=== PATIENT | male | born 1945 | race African-American/Black ===

== ENCOUNTER 2016-04-11 13:24 | Inpatient (IN) | payer MEDICARE, MEDICAID ==
[~2016-04-11] VITALS: Ht 188 cm; Wt 90.2 kg
[~2016-04-11 13:24] MED LIST: AML5T PO; ASPI81CH43 PO; HYDR12.56 PO; LOVA10TA54 PO; TERA2CAP45 PO
[2016-04-11] MEDS ORDERED: SODIUM CHLORIDE 0.9% 250 ML IV ONE (15:09)
[2016-04-11] MEDS ORDERED: CLINDAMYCIN 600MG IV 50 ML IV ONE (15:15)
[2016-04-11] MEDS ORDERED: PROMETHAZINE HCL 25 MG/ML 1ML IV PRN (15:30)
[2016-04-11] MEDS ORDERED: MORPHINE SULF INJ 2 MG/ML SYRINGE 1ML IV PRN ×2 (15:30)
[2016-04-11] MEDS ORDERED: NITROGLYCERIN 0.4 MG SL TAB SL PRN (15:30)
[2016-04-11] MEDS ORDERED: LORazepam 0.5 MG TAB PO PRN (15:30)
[2016-04-11] MEDS ORDERED: LACTULOSE 20Gm/30ML SOLN PO PRN (15:30)
[2016-04-11] MEDS ORDERED: HYDROcodone-ACET 5/325MG TAB PO PRN (15:30)
[2016-04-11] MEDS ORDERED: TEMAZEPAM 15 MG CAP PO PRN (15:30)
[2016-04-11] MEDS ORDERED: DEXTROSE (50%) 50ML SYRG IV PRN (15:30)
[2016-04-11] MEDS ORDERED: ACETAMINOPHEN 500 MG TAB PO PRN (15:30)
[2016-04-11 16:41] LABS: Basophils # (auto) 0.1 uL; Basophils % (auto) 0.6 % (0.0-2.0); Eosinophils # (auto) 0.1 uL; Eosinophils % (auto) 0.9 % (0.0-7.0); Hematocrit 32.7 % (41.0-53.0); Hemoglobin 10.3 g/dL (13.5-17.5); Lymphocytes # (auto) 2.1 uL; Lymphocytes % (auto) 22.3 % (10.0-50.0); Mean Corpuscular Hemoglobin 28.6 pg (28.0-32.0); Mean Corpuscular Hgb Conc. 31.7 g/dL (32.0-36.0); Mean Corpuscular Volume 90.3 fL (80.0-100.0); Mean Platelet Volume 7.5 fL (7.4-10.4); Monocytes # (auto) 0.6 uL; Monocytes % (auto) 6.4 % (0.0-12.0); Neutrophils # (auto) 6.7 uL; Neutrophils % (auto) 69.8 % (37.0-80.0); Platelet Count (auto) 281 10^3/uL (140-450); White Blood Cell 9.6 10^3/uL (4.4-10.8)
[2016-04-11 17:00] LABS: BUN/Creatinine Ratio 23.2; Calcium 7.8 mg/dL (8.5-10.1); Potassium 4.6 mmol/L (3.5-5.1)
[2016-04-11] MEDS: InsuLIN REG 1unit/0.01ml Soln (100units/ml) SC SCH ×2 (17:00→22:00)
[2016-04-11 17:02] LABS: Bilirubin, Total 0.2 mg/dL (0.2-1.0)
[2016-04-11] MEDS: ENOXAPARIN SOD 40 MG/0.4 ML SYRINGE SC SCH (17:14)
[2016-04-11] MEDS: ACCU-CHEK COMFORT CURVE STRIP VI SCH ×2 (17:14→23:14)
[2016-04-11] MEDS: SODIUM CHLORIDE 0.9% 1,000 ML IV SCH (17:23)
[2016-04-11 22:00] VITALS: BP 174/73
[2016-04-11] MEDS: CLINDAMYCIN 600MG IV 50 ML IV SCH (22:55)
[2016-04-12] MEDS: SODIUM CHLORIDE 0.9% 1,000 ML IV SCH ×2 (01:25→11:05)
[2016-04-12 02:33] VITALS: BP 174/73
[2016-04-12] MEDS ORDERED: INFLUENZA QUAD 2016-2017 0.5 ML SYRG IM ONE (03:45)
[2016-04-12] MEDS ORDERED: PNEUMOCOCCAL VACC POLYS 25 MCG/0.5 ML VIAL IM ONE (03:45)
[2016-04-12 05:32] VITALS: BP 109/63
[2016-04-12] MEDS: CLINDAMYCIN 600MG IV 50 ML IV SCH ×3 (06:17→21:33)
[2016-04-12] MEDS: InsuLIN REG 1unit/0.01ml Soln (100units/ml) SC SCH ×4 (07:00→21:51)
[2016-04-12] MEDS: ACCU-CHEK COMFORT CURVE STRIP VI SCH ×4 (07:12→21:51)
[2016-04-12 09:11] VITALS: BP 157/83
[2016-04-12] MEDS: ENOXAPARIN SOD 40 MG/0.4 ML SYRINGE SC SCH (10:47)
[2016-04-12] MEDS: cefTRIAXone 1GM/50ML D5W 50 ML IV SCH (10:47)
[2016-04-12 13:11] VITALS: BP 162/95
[2016-04-12 16:51] VITALS: BP 148/82
[2016-04-12] MEDS ORDERED: SODIUM CHLORIDE 0.9% 1,000 ML IV SCH (19:15)
[2016-04-12] MEDS ORDERED: SODIUM BICARBONATE 8.4 % INJ 50ML VIAL IV ONE ×2 (20:00→21:40)
[2016-04-12] MEDS ORDERED: SODIUM BICARBONATE 50ML VIAL 50 ML in SODIUM CHLORIDE 0.9% 1,000 ML IV SCH (20:15)
[2016-04-12 20:52] LABS: INR 1.14 (0.9-1.15); Prothrombin Time 11.7 sec (9.37-12.3)
[2016-04-12 21:28] VITALS: BP 165/84
[2016-04-12] MEDS: ACETYLCYSTEINE ORAL for CIN 20%(200MG/ML) 4ML PO SCH (21:49)
[2016-04-13] MEDS ORDERED: cloNIDine HCL 0.1 MG TAB ONE (00:31)
[2016-04-13] MEDS: cloNIDine HCL 0.1 MG TAB PO PRN (00:42)
[2016-04-13 05:30] VITALS: BP 150/86
[2016-04-13] MEDS: CLINDAMYCIN 600MG IV 50 ML IV SCH ×3 (05:40→21:43)
[2016-04-13 05:55] LABS: Basophils # (auto) 0 uL; Basophils % (auto) 0.4 % (0.0-2.0); Eosinophils # (auto) 0.1 uL; Eosinophils % (auto) 1.1 % (0.0-7.0); Hematocrit 29.7 % (41.0-53.0); Hemoglobin 9.7 g/dL (13.5-17.5); Mean Corpuscular Hemoglobin 29.3 pg (28.0-32.0); Mean Corpuscular Hgb Conc. 32.7 g/dL (32.0-36.0); Mean Corpuscular Volume 89.4 fL (80.0-100.0); Mean Platelet Volume 7.4 fL (7.4-10.4); Monocytes # (auto) 0.7 uL; Monocytes % (auto) 6.4 % (0.0-12.0); Neutrophils # (auto) 8.1 uL; Neutrophils % (auto) 74.1 % (37.0-80.0); Platelet Count (auto) 257 10^3/uL (140-450); Red Cell Distribution Width 15.7 % (11.6-16.0); White Blood Cell 10.9 10^3/uL (4.4-10.8)
[2016-04-13] MEDS ORDERED: ASPirin 325 MG TAB PO ONE (06:00)
[2016-04-13] MEDS: InsuLIN REG 1unit/0.01ml Soln (100units/ml) SC SCH ×4 (06:27→21:42)
[2016-04-13] MEDS: ACCU-CHEK COMFORT CURVE STRIP VI SCH ×4 (06:27→21:42)
[2016-04-13 06:52] LABS: BUN/Creatinine Ratio 20.4; Calcium 7.8 mg/dL (8.5-10.1)
[2016-04-13 08:22] VITALS: BP 152/82
[2016-04-13] MEDS: ACETYLCYSTEINE ORAL for CIN 20%(200MG/ML) 4ML PO SCH ×2 (09:37→21:41)
[2016-04-13] MEDS: SODIUM CHLORIDE 0.9% 1,000 ML IV SCH (09:38)
[2016-04-13] MEDS: ENOXAPARIN SOD 40 MG/0.4 ML SYRINGE SC SCH (09:38)
[2016-04-13] MEDS: cefTRIAXone 1GM/50ML D5W 50 ML IV SCH (09:38)
[2016-04-13] MEDS ORDERED: IODIXANOL 320MG/ML 100ML BTL IV ONE (12:50)
[2016-04-13] MEDS ORDERED: LIDOCAINE 2%HCL (LOCAL ANESTH.) INJ 20ML MDV ONE (12:50)
[2016-04-13 13:00] VITALS: BP 153/91
[2016-04-13] MEDS ORDERED: fentaNYL CITRATE 100 MCG/2 ML VL ONE (13:43)
[2016-04-13] MEDS ORDERED: EPTIFIBATIDE INJ (2MG/ML) 10ML VIAL IV ONE (13:43)
[2016-04-13] MEDS ORDERED: MIDAZOLAM HCL 1MG/1ML-2 ML VIAL ONE (13:43)
[2016-04-13] MEDS ORDERED: SODIUM CHL 0.9% 50 ML ONE (13:43)
[2016-04-13] MEDS ORDERED: ANGIOMAX 250 MG VIAL IV ONE (13:43)
[2016-04-13] MEDS ORDERED: VERAPAMIL 2.5MG/ML INJ 2ML VIAL IV ONE (14:38)
[2016-04-13] MEDS ORDERED: NITROGLYCERIN 5MG/ML 10ML VIAL IV ONE (14:38)
[2016-04-13] MEDS ORDERED: CLOPIDOGREL 300 MG TAB ONE (15:03)
[2016-04-13] MEDS ORDERED: hydrALAZINE HCL 20 MG/ML VL ONE (15:37)
[2016-04-13] MEDS ORDERED: hydrALAZINE HCL 20 MG/ML VL IV ONE (16:30)
[2016-04-13 16:49] VITALS: BP 158/80
[2016-04-13 22:00] VITALS: BP 177/91
[2016-04-14] MEDS: SODIUM CHLORIDE 0.9% 1,000 ML IV SCH ×2 (04:29→14:11)
[2016-04-14 05:00] VITALS: BP 148/92
[2016-04-14] MEDS: CLINDAMYCIN 600MG IV 50 ML IV SCH ×3 (05:51→21:52)
[2016-04-14 06:23] LABS: Basophils # (auto) 0 uL; Basophils % (auto) 0.2 % (0.0-2.0); Eosinophils # (auto) 0.1 uL; Eosinophils % (auto) 0.7 % (0.0-7.0); Hematocrit 29.4 % (41.0-53.0); Hemoglobin 9.6 g/dL (13.5-17.5); Lymphocytes # (auto) 1.5 uL; Lymphocytes % (auto) 13.6 % (10.0-50.0); Mean Corpuscular Hgb Conc. 32.6 g/dL (32.0-36.0); Mean Corpuscular Volume 88.9 fL (80.0-100.0); Mean Platelet Volume 7.7 fL (7.4-10.4); Monocytes # (auto) 0.7 uL; Monocytes % (auto) 6.3 % (0.0-12.0); Neutrophils # (auto) 8.8 uL; Neutrophils % (auto) 79.2 % (37.0-80.0); Platelet Count (auto) 254 10^3/uL (140-450); Red Cell Distribution Width 15.9 % (11.6-16.0); White Blood Cell 11.1 10^3/uL (4.4-10.8)
[2016-04-14] MEDS: InsuLIN REG 1unit/0.01ml Soln (100units/ml) SC SCH ×4 (06:23→21:53)
[2016-04-14] MEDS: ACCU-CHEK COMFORT CURVE STRIP VI SCH ×4 (06:23→21:52)
[2016-04-14 06:43] LABS: BUN/Creatinine Ratio 18.5; Calcium 7.7 mg/dL (8.5-10.1); Potassium 4.5 mmol/L (3.5-5.1)
[2016-04-14 09:06] VITALS: BP 155/88
[2016-04-14] MEDS: BUPIVACAINE 0.75% INJ 10ML MPV SDV IJ ONE ×2 (09:56→10:30)
[2016-04-14] MEDS ORDERED: LABETALOL HCL 5 MG/ML 4ML SYRINGE IV ONE (09:56)
[2016-04-14] MEDS ORDERED: NEOMYCIN-BACITRACIN-POLYM 15GM TOP OINT TOP ONE (09:56)
[2016-04-14] MEDS: ceFAZolin 1GM VL ONE ×2 (09:56→10:30)
[2016-04-14] MEDS ORDERED: MIDAZOLAM HCL 1MG/1ML-2 ML VIAL IV ONE (09:56)
[2016-04-14] MEDS ORDERED: ONDANSETRON HCL 4 MG/2 ML VIAL ONE (10:07)
[2016-04-14] MEDS ORDERED: fentaNYL CITRATE 100 MCG/2 ML VL ONE (10:07)
[2016-04-14] MEDS ORDERED: KETOROLAC TROMETH 60MG/2ML VIAL IM ONE (10:07)
[2016-04-14] MEDS ORDERED: DEXAMETHASONE SOD PHOS 10MG/1ML VIAL INJ ONE (10:07)
[2016-04-14] MEDS ORDERED: KETAMINE HCL 50 MG/ML 10ML VIAL ONE (10:08)
[2016-04-14] MEDS ORDERED: HYDROmorphone HCL 2 MG/ML VL IV PRN (11:15)
[2016-04-14] MEDS ORDERED: ONDANSETRON HCL 4 MG/2 ML VIAL IV ONE (11:15)
[2016-04-14] MEDS: cefTRIAXone 1GM/50ML D5W 50 ML IV SCH (14:07)
[2016-04-14] MEDS: CLOPIDOGREL BISULFATE 75 MG TAB PO SCH (14:09)
[2016-04-14] MEDS: ENOXAPARIN SOD 40 MG/0.4 ML SYRINGE SC SCH (14:09)
[2016-04-14] MEDS: ACETYLCYSTEINE ORAL for CIN 20%(200MG/ML) 4ML PO SCH (15:19)
[2016-04-14 17:34] VITALS: BP 180/88
[2016-04-14] MEDS ORDERED: amLODIPine BESYLATE 5 MG TAB PO ONE (17:45)
[2016-04-14] MEDS: cloNIDine HCL 0.1 MG TAB PO PRN (18:26)
[2016-04-14 21:16] VITALS: BP 154/87
[2016-04-14 22:00] VITALS: BP 154/87
[2016-04-15 05:00] VITALS: BP 139/77
[2016-04-15] MEDS: SODIUM CHLORIDE 0.9% 1,000 ML IV SCH ×2 (05:46→09:00)
[2016-04-15] MEDS: CLINDAMYCIN 600MG IV 50 ML IV SCH (06:46)
[2016-04-15] MEDS: ACCU-CHEK COMFORT CURVE STRIP VI SCH ×2 (06:46→11:30)
[2016-04-15] MEDS: InsuLIN REG 1unit/0.01ml Soln (100units/ml) SC SCH ×2 (06:47→11:30)
[2016-04-15 09:00] VITALS: BP 131/71
[2016-04-15] MEDS: cefTRIAXone 1GM/50ML D5W 50 ML IV SCH (09:00)
[2016-04-15] MEDS: CLOPIDOGREL BISULFATE 75 MG TAB PO SCH (10:00)
[2016-04-15] MEDS: ENOXAPARIN SOD 40 MG/0.4 ML SYRINGE SC SCH (10:00)
[2016-04-15] MEDS ORDERED: amLODIPine BESYLATE 5 MG TAB PO SCH (10:00)
[2016-04-15 11:07] VITALS: BP 131/71
[2016-04-15 13:00] VITALS: BP 132/84
== END 2016-04-15 14:30 | disposition home or self-care (01) | DRG 617 ==
LOC: ER 13:28 → TELE 13:29 → TELE-EAST 20:16
PROVIDERS: ADMIT Internal Medicine; ATTEND Family Medicine
PROC: 04CL3ZZ Extirpation of Matter from Left Femoral Artery, Percutaneous Approach (ICD-10-PCS; 2016-04-13)
PROC: 04CN3ZZ Extirpation of Matter from Left Popliteal Artery, Percutaneous Approach (ICD-10-PCS; 2016-04-13)
PROC: 047L3Z1 Dilation of Left Femoral Artery using Drug-Coated Balloon, Percutaneous Approach (ICD-10-PCS; 2016-04-13)
PROC: 0Y6Q0Z0 Detachment at Left 1st Toe, Complete, Open Approach (ICD-10-PCS; principal; 2016-04-14 10:11)
DX: E11.69 Type 2 diabetes mellitus with other specified complication (principal); M86.8X7 Other osteomyelitis, ankle and foot; L03.032 Cellulitis of left toe; N18.3 Chronic kidney disease, stage 3 (moderate); I12.9 Hypertensive chronic kidney disease with stage 1 through stage 4 chronic kidney disease, or unspecified chronic kidney disease; E11.22 Type 2 diabetes mellitus with diabetic chronic kidney disease; E78.5 Hyperlipidemia, unspecified; I73.9 Peripheral vascular disease, unspecified; I48.2 Chronic atrial fibrillation; M19.90 Unspecified osteoarthritis, unspecified site; F17.210 Nicotine dependence, cigarettes, uncomplicated; D64.9 Anemia, unspecified; I67.9 Cerebrovascular disease, unspecified; L97.529 Non-pressure chronic ulcer of other part of left foot with unspecified severity; S90.413A Abrasion, unspecified great toe, initial encounter; E11.42 Type 2 diabetes mellitus with diabetic polyneuropathy; R63.4 Abnormal weight loss; I49.9 Cardiac arrhythmia, unspecified; Z83.3 Family history of diabetes mellitus; Z82.49 Family history of ischemic heart disease and other diseases of the circulatory system; Z82.3 Family history of stroke; I25.2 Old myocardial infarction; Z95.0 Presence of cardiac pacemaker; Z79.899 Other long term (current) drug therapy; Z80.9 Family history of malignant neoplasm, unspecified; Z79.82 Long term (current) use of aspirin; Z68.25 Body mass index [BMI] 25.0-25.9, adult
CPT/HCPCS: 36415; 37225; 71010; 73660; 78315; 80048; 80053; 82962; 83036; 85025; 85049; 85610; 85652; 87040; 87205; 93005; 93926; 94761; 96365; 97001; 99152; J0690; J0696; J1100; J1815; J1885; J2250; J2405; J3490; Q9967

== ENCOUNTER 2016-05-02 11:57 | Emergency (ER) | payer MEDICARE, MEDICAID ==
[~2016-05-02] VITALS: Ht 188 cm; Wt 88.0 kg
[2016-05-02 12:26] VITALS: BP 148/82
[2016-05-02] MEDS ORDERED: HYDROmorphone HCL 2 MG/ML VL IM ONE (13:15)
[2016-05-02] MEDS ORDERED: ONDANSETRON HCL 4 MG/2 ML VIAL IM ONE (13:15)
== END 2016-05-02 14:33 | disposition home or self-care (01) ==
LOC: ER 12:10
DX: G89.18 Other acute postprocedural pain (principal); Z89.412 Acquired absence of left great toe; I48.91 Unspecified atrial fibrillation; M19.90 Unspecified osteoarthritis, unspecified site; E11.9 Type 2 diabetes mellitus without complications; E78.5 Hyperlipidemia, unspecified; I10 Essential (primary) hypertension; I25.2 Old myocardial infarction; F17.210 Nicotine dependence, cigarettes, uncomplicated; Z79.899 Other long term (current) drug therapy; Z79.82 Long term (current) use of aspirin
CPT/HCPCS: 96372; 99284; J1170; J2405

== ENCOUNTER 2016-08-09 12:17 | Inpatient (IN) | payer MEDICARE, MEDICAID ==
[~2016-08-09] VITALS: Ht 188 cm; Wt 84.6 kg
[~2016-08-09 12:17] MED LIST changes: +ACE325T PO; +ASCO500C49 PO; +FAM20T PO; -HYDR12.56 PO; +INSREGI SC; +MULTTAB99 PO; +PIP3PBAE IV; +SACC250C PO; +TEMA15CA91 PO; +VAN1PBAE IV; +ZIN220C PO; +[UNRECOGNIZED DRUG - OTHER] VI
[2016-08-09 13:18] LABS: Basophils # (auto) 0.1 uL; Basophils % (auto) 0.9 % (0.0-2.0); Eosinophils # (auto) 0 uL; Eosinophils % (auto) 0.4 % (0.0-7.0); Hematocrit 34.3 % (41.0-53.0); Hemoglobin 11.4 g/dL (13.5-17.5); Lymphocytes # (auto) 1.3 uL; Lymphocytes % (auto) 12.9 % (10.0-50.0); Mean Corpuscular Hemoglobin 29.3 pg (28.0-32.0); Mean Corpuscular Hgb Conc. 33.2 g/dL (32.0-36.0); Mean Corpuscular Volume 88.3 fL (80.0-100.0); Mean Platelet Volume 7.5 fL (7.4-10.4); Monocytes # (auto) 0.5 uL; Monocytes % (auto) 5.3 % (0.0-12.0); Neutrophils # (auto) 8.1 uL; Neutrophils % (auto) 80.5 % (37.0-80.0); Platelet Count (auto) 457 10^3/uL (140-450); White Blood Cell 10.1 10^3/uL (4.4-10.8)
[2016-08-09 13:31] LABS: INR 1.06 (0.9-1.15); Partial Thromboplastin Time 24.3 sec (22.64-33.71); Prothrombin Time 11.4 sec (9.37-12.3)
[2016-08-09 13:37] LABS: Albumin 2.6 g/dL (3.4-5.0); BUN/Creatinine Ratio 18.2; Calcium 8.6 mg/dL (8.5-10.1); Potassium 3.9 mmol/L (3.5-5.1)
[2016-08-09 13:39] LABS: Bilirubin, Total 0.3 mg/dL (0.2-1.0); Total Protein 7.5 g/dL (6.4-8.2)
[2016-08-09] MEDS ORDERED: VANCOMYCIN PER PHARMACY 0 MG IV SCH (15:15)
[2016-08-09] MEDS ORDERED: DEXTROSE (50%) 50ML SYRG IV PRN (15:15)
[2016-08-09] MEDS ORDERED: MULTIPLE VITAMINS W/ MINERALS TAB PO ONE (15:15)
[2016-08-09] MEDS ORDERED: CLINDAMYCIN 600MG IV 50 ML IV ONE (15:15)
[2016-08-09] MEDS ORDERED: ZINC SULFATE 220 MG CAP PO ONE (15:15)
[2016-08-09] MEDS ORDERED: PIPERACILLIN-TAZOB 3.375GM 100 ML IV ONE (15:15)
[2016-08-09] MEDS ORDERED: ONDANSETRON HCL 4 MG/2 ML VIAL IV PRN (15:15)
[2016-08-09] MEDS ORDERED: VANCOMYCIN 1,250 MG in D5W 5% 250 ML IV ONE (17:00)
[2016-08-09] MEDS: ACCU-CHEK COMFORT CURVE STRIP VI SCH ×2 (17:20→22:26)
[2016-08-09] MEDS: InsuLIN REG 1unit/0.01ml Soln (100units/ml) SC SCH ×2 (17:23→22:00)
[2016-08-09] MEDS: SODIUM CHLORIDE 0.9% 1,000 ML IV SCH (17:27)
[2016-08-09] MEDS: PIPERACILLIN-TAZOB 2.25GM 50 ML IV SCH ×2 (18:00→23:33)
[2016-08-09 22:00] VITALS: BP 129/73
[2016-08-09] MEDS: ATORVASTATIN 20 MG TAB PO SCH (22:25)
[2016-08-09] MEDS: TERAZOSIN HCL 1 MG CAP PO SCH (22:26)
[2016-08-09 22:44] LABS: Urine Bilirubin Negative (Negative); Urine Blood Negative /uL (Negative); Urine Color Yellow (Yellow); Urine Ketone Negative (Negative); Urine Nitrite Negative (Negative); Urine RBC 2 /hpf (0 - 3); Urine Squamous Epithelial Cell FEW /hpf (<5); Urine Urobilinogen Normal (Negative)
[2016-08-09 22:45] LABS: Urine Glucose 1+ mg/dL (Normal)
[2016-08-10] MEDS: PIPERACILLIN-TAZOB 2.25GM 50 ML IV SCH ×4 (05:02→23:31)
[2016-08-10 06:00] VITALS: BP 145/76
[2016-08-10] MEDS: InsuLIN REG 1unit/0.01ml Soln (100units/ml) SC SCH ×4 (06:40→22:15)
[2016-08-10] MEDS: ACCU-CHEK COMFORT CURVE STRIP VI SCH ×4 (06:41→22:09)
[2016-08-10 06:51] LABS: Albumin 2.3 g/dL (3.4-5.0); Bilirubin, Total 0.5 mg/dL (0.2-1.0); Calcium 8.2 mg/dL (8.5-10.1); Potassium 3.6 mmol/L (3.5-5.1); Total Protein 6.9 g/dL (6.4-8.2)
[2016-08-10] MEDS: SODIUM CHLORIDE 0.9% 1,000 ML IV SCH (07:55)
[2016-08-10 08:00] VITALS: BP 124/82
[2016-08-10] MEDS ORDERED: ONDANSETRON HCL 4 MG/2 ML VIAL IV ONE (10:22)
[2016-08-10] MEDS ORDERED: ceFAZolin 1GM/50ML D5W 50 ML IV ONE (10:22)
[2016-08-10] MEDS ORDERED: PROPOFOL 10 MG/ML 20 ML IV ONE (10:22)
[2016-08-10] MEDS ORDERED: BUPIVACAINE 0.75% INJ 10ML MPV SDV IJ ONE (10:36)
[2016-08-10] MEDS ORDERED: ceFAZolin 1GM VL ONE (10:36)
[2016-08-10] MEDS ORDERED: MIDAZOLAM HCL 1MG/1ML-2 ML VIAL ONE (10:41)
[2016-08-10] MEDS ORDERED: fentaNYL CITRATE 100 MCG/2 ML VL ONE (10:41)
[2016-08-10] MEDS ORDERED: ACCU-CHEK COMFORT CURVE STRIP VI ONE (10:45)
[2016-08-10] MEDS ORDERED: HYDROmorphone HCL 2 MG/ML VL IV PRN (10:45)
[2016-08-10] MEDS ORDERED: METOCLOPRAMIDE HCL 5MG/ml INJ 2ml VIAL IV ONE (10:45)
[2016-08-10 12:28] VITALS: BP 144/72
[2016-08-10] MEDS: ZINC SULFATE 220 MG CAP PO SCH (13:33)
[2016-08-10] MEDS: MULTIPLE VITAMINS W/ MINERALS TAB PO SCH (13:34)
[2016-08-10] MEDS: amLODIPine BESYLATE 5 MG TAB PO SCH (13:34)
[2016-08-10 17:00] VITALS: BP 140/71
[2016-08-10] MEDS ORDERED: VANCOMYCIN 1GM/250ML D5W 250 ML IV SCH (17:00)
[2016-08-10] MEDS: HYDROcodone-ACET 5/325MG TAB PO PRN (18:57)
[2016-08-10 22:00] VITALS: BP 157/76
[2016-08-10] MEDS: ATORVASTATIN 20 MG TAB PO SCH (22:08)
[2016-08-10] MEDS: TERAZOSIN HCL 1 MG CAP PO SCH (22:09)
[2016-08-11] MEDS: HYDROcodone-ACET 5/325MG TAB PO PRN ×4 (00:55→18:38)
[2016-08-11] MEDS: SODIUM CHLORIDE 0.9% 1,000 ML IV SCH (04:46)
[2016-08-11] MEDS: PIPERACILLIN-TAZOB 2.25GM 50 ML IV SCH (04:47)
[2016-08-11 05:00] VITALS: BP 146/72
[2016-08-11] MEDS: InsuLIN REG 1unit/0.01ml Soln (100units/ml) SC SCH ×4 (05:53→22:10)
[2016-08-11] MEDS: ACCU-CHEK COMFORT CURVE STRIP VI SCH ×4 (05:53→22:10)
[2016-08-11 06:16] LABS: Basophils # (auto) 0.1 uL; Basophils % (auto) 0.5 % (0.0-2.0); Eosinophils # (auto) 0.1 uL; Eosinophils % (auto) 1.1 % (0.0-7.0); Hematocrit 32.8 % (41.0-53.0); Hemoglobin 10.9 g/dL (13.5-17.5); Lymphocytes % (auto) 9.3 % (10.0-50.0); Mean Corpuscular Hemoglobin 29.1 pg (28.0-32.0); Mean Corpuscular Hgb Conc. 33.3 g/dL (32.0-36.0); Mean Corpuscular Volume 87.6 fL (80.0-100.0); Mean Platelet Volume 7.5 fL (7.4-10.4); Monocytes # (auto) 0.8 uL; Monocytes % (auto) 7.5 % (0.0-12.0); Neutrophils # (auto) 8.4 uL; Neutrophils % (auto) 81.6 % (37.0-80.0); Platelet Count (auto) 437 10^3/uL (140-450); Red Cell Distribution Width 14.8 % (11.6-16.0); White Blood Cell 10.3 10^3/uL (4.4-10.8)
[2016-08-11 06:45] LABS: BUN/Creatinine Ratio 14.5; Calcium 8.2 mg/dL (8.5-10.1); Potassium 3.9 mmol/L (3.5-5.1)
[2016-08-11] MEDS: MORPHINE SULF INJ 2 MG/ML SYRINGE 1ML IV PRN ×3 (08:23→16:44)
[2016-08-11] MEDS: MULTIPLE VITAMINS W/ MINERALS TAB PO SCH (08:23)
[2016-08-11] MEDS: ZINC SULFATE 220 MG CAP PO SCH (08:24)
[2016-08-11] MEDS: amLODIPine BESYLATE 5 MG TAB PO SCH (08:24)
[2016-08-11 09:12] VITALS: BP 135/66
[2016-08-11] MEDS: DOXYCYCLINE HYC 100MG/250ML 250 ML IV SCH ×2 (11:47→22:55)
[2016-08-11 16:54] VITALS: BP 150/84
[2016-08-11] MEDS: ATORVASTATIN 20 MG TAB PO SCH (21:56)
[2016-08-11] MEDS: TERAZOSIN HCL 1 MG CAP PO SCH (21:58)
[2016-08-11 22:04] VITALS: BP 153/78
[2016-08-12 05:00] VITALS: BP_SYST 111; BP_SYST 145; BP_DIAS 70; BP_DIAS 71
[2016-08-12] MEDS: InsuLIN REG 1unit/0.01ml Soln (100units/ml) SC SCH ×3 (06:14→17:53)
[2016-08-12] MEDS: ACCU-CHEK COMFORT CURVE STRIP VI SCH ×3 (06:15→17:53)
[2016-08-12 09:00] VITALS: BP 152/82
[2016-08-12] MEDS: ZINC SULFATE 220 MG CAP PO SCH (09:24)
[2016-08-12] MEDS: MULTIPLE VITAMINS W/ MINERALS TAB PO SCH (09:24)
[2016-08-12] MEDS: amLODIPine BESYLATE 5 MG TAB PO SCH (09:25)
[2016-08-12] MEDS: DOXYCYCLINE HYC 100MG/250ML 250 ML IV SCH (11:00)
[2016-08-12] MEDS: HYDROcodone-ACET 5/325MG TAB PO PRN (11:49)
[2016-08-12 12:58] VITALS: BP 146/79
[2016-08-12 16:53] VITALS: BP 154/71
== END 2016-08-12 19:15 | DRG 464 ==
LOC: EDUNIT# 12:17 → ER 12:17 → EDBD 12:17 → OVERFLOW 12:18 → EAST 18:23
PROVIDERS: ADMIT Internal Medicine; ATTEND Internal Medicine
PROC: 0HRNXK3 Replacement of Left Foot Skin with Nonautologous Tissue Substitute, Full Thickness, External Approach (ICD-10-PCS; 2016-08-10)
PROC: 0QBP0ZZ Excision of Left Metatarsal, Open Approach (ICD-10-PCS; principal; 2016-08-10 10:50)
DX: T87.54 Necrosis of amputation stump, left lower extremity (principal); E44.0 Moderate protein-calorie malnutrition; T81.4XXA Infection following a procedure, initial encounter; E78.5 Hyperlipidemia, unspecified; I12.9 Hypertensive chronic kidney disease with stage 1 through stage 4 chronic kidney disease, or unspecified chronic kidney disease; E11.621 Type 2 diabetes mellitus with foot ulcer; T81.89XA Other complications of procedures, not elsewhere classified, initial encounter; B95.62 Methicillin resistant Staphylococcus aureus infection as the cause of diseases classified elsewhere; E11.22 Type 2 diabetes mellitus with diabetic chronic kidney disease; E11.40 Type 2 diabetes mellitus with diabetic neuropathy, unspecified; R91.1 Solitary pulmonary nodule; F17.210 Nicotine dependence, cigarettes, uncomplicated; N18.3 Chronic kidney disease, stage 3 (moderate); L97.529 Non-pressure chronic ulcer of other part of left foot with unspecified severity; L97.519 Non-pressure chronic ulcer of other part of right foot with unspecified severity; I48.91 Unspecified atrial fibrillation; Z95.0 Presence of cardiac pacemaker; Z82.3 Family history of stroke; Z82.49 Family history of ischemic heart disease and other diseases of the circulatory system; Z83.3 Family history of diabetes mellitus; Z68.23 Body mass index [BMI] 23.0-23.9, adult; Z79.899 Other long term (current) drug therapy; Z89.412 Acquired absence of left great toe; Z79.82 Long term (current) use of aspirin; Y92.89 Other specified places as the place of occurrence of the external cause; Y83.9 Surgical procedure, unspecified as the cause of abnormal reaction of the patient, or of later complication, without mention of misadventure at the time of the procedure
CPT/HCPCS: 36415; 71010; 71250; 73620; 80048; 80053; 80202; 81001; 82962; 83036; 83605; 85025; 85610; 85730; 87040; 87070; 87075; 87077; 87186; 87205; 93005; 93923; J0690; J1815; J2250; J2405; J2543; J2704; J3490; J7060